=== PATIENT | female | born 1985 | race Caucasian/White ===

== ENCOUNTER → 2017-04-20 09:16 | Outpatient (CLI) | payer MEDICAID, SELFPAY ==
[2017-04-20 09:29] LABS: Basophils % 0.4 % (0.1-2.0); Eosinophils # 0.1 K/mm3 (0.0-0.4); Eosinophils % 1.3 % (0.1-12.0); Hematocrit 38.5 % (37.0-47.0); Hemoglobin 12.1 g/dL (12.2-16.2); Lymphocytes # 2.4 K/mm3 (0.7-4.5); Lymphocytes % 29.4 K/mm3 (10-50); Mean Corpuscular HGB Conc 31.3 g/dL (31.8-35.4); Mean Corpuscular Hemoglobin 26.6 pg (27.0-31.2); Mean Corpuscular Volume 84.8 fl (81-99); Mean Platelet Volume 8.3 fl (7.4-10.4); Monocytes # 0.4 K/mm3 (0.1-1.0); Monocytes % 5.1 % (1.7-9.3); Neutrophils # 5.1 K/mm3 (1.8-7.8); Neutrophils % 63.8 % (37.0-80.0); Platelet Count 274 K/mm3 (142-424); Red Blood Count 4.54 M/mm3 (4.20-5.40); Red Cell Distribution Width 13.2 % (11.5-17.5)
[2017-04-20 10:54] LABS: Alanine Aminotransferase 14 U/L (12-78); Albumin Level 3.7 gm/dL (3.4-5.0); Alkaline Phosphatase 88 U/L (46-116); Anion Gap 15.6 mEq/L (5-15); Aspartate Amino Transferase 5 U/L (15-37); Bilirubin,Total 0.3 mg/dL (0.2-1.0); Blood Urea Nitrogen 14 mg/dL (7-18); Calcium 8.7 mg/dL (8.5-10.1); Carbon Dioxide 23 mmol/L (21.0-32.0); Chloride 108 mmol/L (98-107); Creatinine,Serum 0.88 mg/dL (0.55-1.02); Estimated Glomerular Filt Rate 76 ml/min (>60); GFR (African American) 92 ML/MIN (>60); Globulin 3.8 gm/dl (1.3-3.2); Glucose 148 mg/dL (74-106); Potassium 3.6 mmoL/L (3.5-5.1); Sodium 143 mmol/L (136-145); Thyroid Stimulating Hormone 3.49 uIU/ml (0.358-3.740); Total Protein,Serum 7.5 gm/dL (6.4-8.2)
== END ==
PROVIDERS: PCP Nurse Practitioner Family; Visit Provider Nurse Practitioner Family
DX: G40.909 Epilepsy, unspecified, not intractable, without status epilepticus (principal)
CPT/HCPCS: 36415; 80053; 84443; 85025

== ENCOUNTER → 2017-10-26 08:19 | Outpatient (CLI) | payer MEDICAID, SELFPAY ==
[2017-10-26 08:57] LABS: Hemoglobin A1C 5.7 % (0.0-7.0)
[2017-10-26 09:29] LABS: Alanine Aminotransferase 17 U/L (12-78); Albumin Level 3.6 gm/dL (3.4-5.0); Albumin/Globulin Ratio 0.9 (1.1-1.8); Alkaline Phosphatase 85 U/L (46-116); Anion Gap 15.2 mEq/L (5-15); Aspartate Amino Transferase 9 U/L (15-37); Bilirubin,Total 0.4 mg/dL (0.2-1.0); Blood Urea Nitrogen 15 mg/dL (7-18); Calcium 8.9 mg/dL (8.5-10.1); Carbon Dioxide 26 mmol/L (21.0-32.0); Chloride 106 mmol/L (98-107); Chol/HDL Ratio 2.6 (1-3.5); Cholesterol 156 mg/dL (140-200); Creatinine,Serum 0.94 mg/dL (0.55-1.02); Estimated Glomerular Filt Rate 70 ml/min (>60); GFR (African American) 85 ML/MIN (>60); Globulin 3.9 gm/dl (1.3-3.2); Glucose 82 mg/dL (74-106); HDL Cholesterol 61 mg/dL (29-89); LDL Cholesterol 87 mg/dL (0-130); Potassium 4.2 mmoL/L (3.5-5.1); Sodium 143 mmol/L (136-145); Total Protein,Serum 7.5 gm/dL (6.4-8.2); Triglycerides 40 mg/dL (30-200); VLDL Cholesterol 8 mg/dL (0-40)
== END ==
PROVIDERS: Visit Provider Nurse Practitioner Family
DX: G40.909 Epilepsy, unspecified, not intractable, without status epilepticus (principal); R73.9 Hyperglycemia, unspecified
CPT/HCPCS: 36415; 80053; 80061; 83036

== ENCOUNTER → 2018-11-04 09:12 | Outpatient (CLI) | payer MEDICAID, SELFPAY ==
[2018-11-04 09:39] LABS: Basophils % 0.3 % (0.1-2.0); Eosinophils # 0.2 K/mm3 (0.0-0.4); Eosinophils % 2.2 % (0.1-12.0); Hematocrit 37.9 % (37.0-47.0); Hemoglobin 12.1 g/dL (12.2-16.2); Lymphocytes # 3.9 K/mm3 (0.7-4.5); Lymphocytes % 44.6 % (10-50); Mean Corpuscular Volume 90.8 fl (81-99); Mean Platelet Volume 7.8 fl (7.4-10.4); Monocytes # 0.4 K/mm3 (0.1-1.0); Neutrophils # 4.2 K/mm3 (1.8-7.8); Platelet Count 326 K/mm3 (142-424); Red Blood Count 4.17 M/mm3 (4.20-5.40); Red Cell Distribution Width 13.7 % (11.5-17.5); White Blood Count 8.8 K/mm3 (4.8-10.8)
[2018-11-04 10:55] LABS: Alanine Aminotransferase 19 U/L (12-78); Albumin Level 3.6 gm/dL (3.4-5.0); Alkaline Phosphatase 65 U/L (46-116); Anion Gap 13.1 mEq/L (5-15); Aspartate Amino Transferase 5 U/L (15-37); Bilirubin,Total 0.3 mg/dL (0.2-1.0); Blood Urea Nitrogen 11 mg/dL (7-18); Calcium 9.2 mg/dL (8.5-10.1); Carbon Dioxide 26 mmol/L (21.0-32.0); Chloride 104 mmol/L (98-107); Estimated Glomerular Filt Rate 98 ml/min (>60); GFR (African American) 118 ML/MIN (>60); Globulin 3.6 gm/dl (1.3-3.2); Glucose 113 mg/dL (74-106); Potassium 4.1 mmoL/L (3.5-5.1); Sodium 139 mmol/L (136-145); Total Protein,Serum 7.2 gm/dL (6.4-8.2)
[2018-11-05 20:20] LABS: Folate >20.0 ng/mL (>3.0)
== END ==
PROVIDERS: Visit Provider Nurse Practitioner Family
DX: G40.909 Epilepsy, unspecified, not intractable, without status epilepticus (principal); Z51.81 Encounter for therapeutic drug level monitoring
CPT/HCPCS: 36415; 80053; 80177; 82746; 85025

== ENCOUNTER → 2019-11-12 08:25 | Outpatient (CLI) | payer OTHER, SELFPAY ==
[2019-11-12 08:57] LABS: Basophils % 0.4 % (0.1-2.0); Eosinophils # 0.1 K/mm3 (0.0-0.4); Eosinophils % 1.7 % (0.1-12.0); Hematocrit 39.4 % (37.0-47.0); Lymphocytes % 47.4 % (10-50); Mean Corpuscular Hemoglobin 30.7 pg (27.0-31.2); Mean Corpuscular Volume 93.1 fl (81-99); Mean Platelet Volume 7.5 fl (7.4-10.4); Monocytes # 0.4 K/mm3 (0.1-1.0); Monocytes % 4.2 % (1.7-9.3); Neutrophils # 3.9 K/mm3 (1.8-7.8); Neutrophils % 46.3 % (37.0-80.0); Platelet Count 301 K/mm3 (142-424); Red Blood Count 4.23 M/mm3 (4.20-5.40); Red Cell Distribution Width 12.5 % (11.5-17.5); White Blood Count 8.4 K/mm3 (4.8-10.8)
[2019-11-12 10:04] LABS: Hemoglobin A1C 5.3 % (4.0-6.0)
[2019-11-12 10:15] LABS: Alanine Aminotransferase 16 U/L (12-78); Albumin Level 3.9 g/dl (3.5-5.0); Albumin/Globulin Ratio 1.3 (1.1-1.8); Alkaline Phosphatase 72 U/L (38-126); Aspartate Amino Transferase 19 U/L (14-36); Bilirubin,Total 0.4 mg/dl (0.2-1.3); Blood Urea Nitrogen 12 mg/dl (7-17); Calcium 9.2 mg/dl (8.4-10.2); Carbon Dioxide 27 mmol/L (22.0-30.0); Chloride 102 mmol/L (98-107); Estimated Glomerular Filt Rate 116 ml/min (>60); GFR (African American) 140 ML/MIN (>60); Globulin 3.1 g/dL (1.3-3.2); Glucose 105 mg/dl (74-100); Sodium 137 mmol/L (136-145)
[2019-11-14 09:43] LABS: Levetiracetam (Keppra) 34.2 ug/mL (10.0-40.0)
== END ==
PROVIDERS: Visit Provider Nurse Practitioner Family
DX: G40.909 Epilepsy, unspecified, not intractable, without status epilepticus (principal); R73.9 Hyperglycemia, unspecified; Z51.81 Encounter for therapeutic drug level monitoring; Z86.2 Personal history of diseases of the blood and blood-forming organs and certain disorders involving the immune mechanism
CPT/HCPCS: 36415; 80053; 80177; 83036; 85025

== ENCOUNTER → 2020-12-07 15:17 | Outpatient (CLI) | payer OTHER, SELFPAY ==
[2020-12-07 15:53] LABS: Basophils % 0.5 % (0.1-2.0); Eosinophils # 0.1 K/mm3 (0.0-0.4); Eosinophils % 0.9 % (0.1-12.0); Hemoglobin 13.5 g/dL (12.2-16.2); Lymphocytes # 2.2 K/mm3 (0.7-4.5); Lymphocytes % 29.9 % (10-50); Mean Corpuscular HGB Conc 32.1 g/dL (31.8-35.4); Mean Corpuscular Hemoglobin 29.6 pg (27.0-31.2); Mean Corpuscular Volume 92.2 fl (81-99); Mean Platelet Volume 7.5 fl (7.4-10.4); Monocytes # 0.3 K/mm3 (0.1-1.0); Monocytes % 4.4 % (1.7-9.3); Neutrophils # 4.8 K/mm3 (1.8-7.8); Neutrophils % 64.4 % (37.0-80.0); Platelet Count 385 K/mm3 (142-424); Red Blood Count 4.55 M/mm3 (4.20-5.40); Red Cell Distribution Width 12.1 % (11.5-17.5); White Blood Count 7.4 K/mm3 (4.8-10.8)
[2020-12-07 16:37] LABS: Hemoglobin A1C 5.4 % (4.0-6.0)
[2020-12-07 16:47] LABS: Chloride 105 mmol/L (98-107); Potassium 4.9 mmoL/L (3.5-5.1); Sodium 141 mmol/L (136-145)
[2020-12-07 16:50] LABS: Alanine Aminotransferase 22 U/L (12-78); Alkaline Phosphatase 84 U/L (38-126); Anion Gap 14.9 mEq/L (5-15); Aspartate Amino Transferase 23 U/L (14-36); Blood Urea Nitrogen 12 mg/dl (7-17); Carbon Dioxide 26 mmol/L (22.0-30.0); Estimated Glomerular Filt Rate 115 ml/min (>60); GFR (African American) 139 ML/MIN (>60)
[2020-12-07 16:51] LABS: Albumin Level 4.4 g/dl (3.5-5.0); Albumin/Globulin Ratio 1.3 (1.1-1.8); Calcium 9.5 mg/dl (8.4-10.2); Globulin 3.4 g/dL (1.3-3.2); Glucose 132 mg/dl (74-100); Total Protein,Serum 7.8 g/dl (6.3-8.2)
[2020-12-07 16:52] LABS: Free Thyroxine Index 2.9 ug/dL (5.93-13.13); T4 (Thyroxine) 10.1 ug/dl (5.53-11.0); Triiodothryronine (T3) Uptake 29 % (23.5-40.5)
[2020-12-07 17:05] LABS: Bilirubin,Total 0.1 mg/dl (0.2-1.3); Thyroid Stimulating Hormone 1.34 uIU/mL (0.465-4.68)
== END ==
PROVIDERS: Visit Provider Nurse Practitioner Family
DX: R00.0 Tachycardia, unspecified (principal); R73.9 Hyperglycemia, unspecified; G40.909 Epilepsy, unspecified, not intractable, without status epilepticus; Z51.81 Encounter for therapeutic drug level monitoring
CPT/HCPCS: 36415; 80053; 80177; 83036; 84436; 84443; 84479; 85025

== ENCOUNTER 2024-12-21 10:41 | Outpatient (CLI) | payer OTHER, SELFPAY ==
--- OUTSIDE RECORDS SUMMARY | 2024-10-29 12:45 | XMS_ITS ---
Author Organization [facility] Address [address] [facility] [address] [facility] [address], [place] [address] Care Team Providers Care Leather Lacer Name Role Phone Anika Costello Primary Care Provider Allergies No Known Allergies REASON FOR VISIT medication check Medications Medication SIG (Take, Route, Frequency, Duration) Notes Start Date End Date Status Keppra 1000 MG 1 tab(s) orally 2 ti mes a day; Duration: 30 days Active Metoprolol Succinate ER 25 MG 1 tablet Orally Once a day; Duration: 30 days 10/29/2024 Active Multivitamin - 1 tablet Orally Once a day Active Problems Problem Type SNOMED Code ICD Code Onset Dates Problem Status W/U Status Risk Notes Problem Essential hypertension (98284457) Essential hypertension (I10) Active confirmed Vital Signs Temperature 97.9 degrees Fahrenheit 10/30/19 25 Heart Rate 150 /min 10/29/2024 Blood pressure systolic 142 mm Hg 10/30/19 25 Blood pressure diastolic 100 mm Hg 025 Height 69.5 in 10/29/2024 Weight 214 lbs 10/29/2024 BMI 31.15 kg/m2 10/29/2024 HR 100 Encounters Encounter Location Date Provider Diagnosis [facility] [address] [facility] [address] [place], [place] [address] 10/29/2024 Anika Costello Essential hypertensi on I10 ; Tachycardia R00.0 ; Seizure disorder G40.909 ; BMI 31.0-31.9,adult Z68.31 ; INTERNAL CONTROL MANAGER (ventriculoperitoneal) shunt status Z98.2 and Prediabetes R73.03 Assessments Encounter Date Diagnosis (ICD Code) Assessment Notes Treatment Notes Treatment Clinical Notes Section Notes 10/29/2024 Essential hypertension (ICD-10 - I10) BP again mildly elevated, as is her HR. Both come down with time in the office and she admits significant anxiety about coming in to the office EKG, Holter and Echo done in 2015 for tachycardia were normal Rec low dose metoprolol, encouraged to monitor BP/HR at home 2-3 times per week, and FU again in 3-4 weeks to re-evaluate and obtain labs Sooner return precautions reviewed 10/29/2024 Tachycardia (ICD-10 - R00.0) 10/29/2024 Seizure disorder (ICD-10 - G40.909) continue Keppra 10/29/2024 BMI 31.0-31.9,adult (ICD-10 - Z68.31) 10/29/2024 INTERNAL CONTROL MANAGER (ventriculoperito conrado) shunt status (ICD-10 - Z98.2) no evidence of complication at this time 10/29/2024 Prediabetes (ICD-10 - R73.03) continue dietary efforts Plan Of Treatment Medication Medication Name Sig Start Date Stop Date Notes Keppra 1000 MG 1 tab(s) orally 2 ti mes a day; Duration: 30 days Metoprolol Succinate ER 25 MG 1 tablet O rally Once a day; Duration: 30 days 10/29/2024 Next Appt Details Follow Up: 3-4 weeks, Reason : AWV Progress Notes * rGecia GARDNER AnnDOB:[birth year] (39 yo F)Acc No.[id number]:10/29/2024 Progress Notes Patient: Grecia SESAY Clotilde Provider: TROY Mera :1985 A ge:39 Y S ex:Female Date:10/29/2024 Address:[address] [facility] [address] , [id number] Subjective: * Chief Complaints: * 1 . Medication check. * HPI: g en: 39 yr old female seen today for routine FU. She continues to work on diet/exercise due to prediabetes and strong FH of DM. Weight has trended down slightly over the past year. Riding exercise bike occasionally and tolerates well. No seizure activity. Taking Keppra regularly and folic acid supplement. Menstrual cycles are regular, mild-mod dysmenorrhea on the first day of cycle but improves afterward. She does note some mild constipation with BM only every 2-3 days but denies associated abd pain or difficulty passing stools. Does a good job drinking water throughout the day but doesn't get much fiber in diet. Continues to live with her parents. Spends time watching TV, few hobbies. Doesn't socialize outside of her family. Has been helping babysit her niece and nephew some over the summer. * ROS: R ESPIRATORY: no S hortness of breath. n o C hest pain. n o?Cough. C ARDIOLOGY: no D izziness. n o C hest pain. n o P alpitations. C ONSTITUTIONAL: no F ever. n o F atigue. G ASTROENTEROLOGY: See HPI Y es. n o N ausea. n o V omiting.?no D iarrhea. C onstipation y es. H EMATOLOGY/LYMPH: no F atigue. M USCULOSKELETAL: no b ack pain. n o J oint stiffness. n o J oint pain. n o J oint swelling. U ROLOGY: no B lood in urine. n o F requent urination. ? * Medical History: P osterior fossa encephalocele, s/p INTERNAL CONTROL MANAGER shunting x 2 during grade tamper. 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 Neurology has recommended long-term treatment. * Surgical History: F luid back of head 1987, Fluid back of head x 3 2012. * Hospitalization/Major Diagno stic Procedure: a ll of the above . * Family History: F ather: alive, diagnosed with Hypertension. M other: alive, Hyperlipidemia, diagnosed with Diabetes, Hypertension. P aternal Grand Father: , prostate cancer, diagnosed with Cancer. P aternal Grand Mother: alive, Hyperlipidemia, diagnosed with Hypertension, Heart Disease, Stroke. M aternal Grand Father: unknown. M aternal Grand Mother: , Gout, Thyroid issues, diagnosed with Diabetes, Hypertension. P aternal uncle: alive. P aternal aunt: alive.?Maternal uncle: alive. M aternal aunt: alive. S iblings: alive. 1 brother(s) - healthy. . * Social History: S moking A re you a:: nonsmoker. R ecreational drug use: no. Exercise: yes. Home smoke detector use: yes. Caffeine: yes, soda a couple times weekly. Living Will: No. Alcohol: no. Sexually active: no. Travel outside US: no. Occupation: unemployed. Lives at home with parents. Completed only Sophomore year of high school because I just couldn't understand anything . * Medications: T aking Multivitamin - Tablet 1 tablet Orally Once a day , Taking Keppra 1000 MG Tablet 1 tab(s) orally 2 times a day , Discontinued Folic Acid OTC 1 TAB QD , Notes to Pharmacist: 800 mcg once a day *Please review and pick correct strength- formulation from Medispan options. If intended option is not shown, discontinue and re-order from Quick Search*, Medication List reviewed and reconciled with the patient * Allergies: N .K.D.A. Objective: * Vitals: N urse: be, Pain: 0, Temp: 97.9, RR: 16, HR: 150, BP: 142/100, Ht: 69.5, Wt: 214, BMI:31.15, Repeat BP: 148/90. HR 100. * Examination: G eneral Examination: General P leasant and Cooperative, NAD on RA,. Heart: R RR, No m/r/g/h, Nl S1S2, No JVD, 2(+) symmetric pulses, No edema. HEENT: V P shuntTravels along the right side of her neck .? Lungs: L CTAB, No wheezes, crackles or rhonchi, Good air movement,. Abdomen: S oft, NTND, BSNA, No organomegaly or peritoneal signs.. Neurologic Exam: Alert and oriented x 3. Skin: w ithout acute rashes. Peripheral pulses: n ormal (2+) bilaterally. neck supple,, no thyromegaly,, no lymphadenopathy,. Psych p leasant to mildly anxious. Assessment: * Assessment: 1. E ssential hypertension - I10 (Primary) 2 . T achycardia - R00.0 ? 3 . S eizure disorder - G40.909 4 . B NV 31.0-31.9,adult - Z68.31? 5. V P (ventriculoperitoneal) shunt status - Z98.2 6 . P rediabetes - R73.03 Plan: * Treatment: 2. S eizure disorder Refill Keppra Tablet, 1000 MG, 1 tab(s), orally, 2 times a day, 30 days, 60 Tablet, Refills 11.? Clinical Notes: continue Keppra 3. V P (ventriculoperitoneal) shunt status Clinical Notes: no evidence of complication at this time 4. P rediabetes Clinical Notes: continue dietary efforts * Follow Up: 3 -4 weeks (Reason: AWV) * * Sign off status: Completed true * Provider: TROY Mera Date: 0 10/29/2024 Generated for Mihaela fry/Cheikh/Carlene on: 1 10:50 AM EDT History and Physical Notes * Examination Category Sub-Category Detail Notes Category Not es General Examination HEENT: INTERNAL CONTROL MANAGER shunt Travels along the right side of her neck Heart: RRR, No m/r/g/h, Nl S1S2, No JVD, 2(+) symmetric pulses, No edema Lungs: LCTAB, No wheezes, c rackles or rhonchi, Good air movement, Abdomen: Soft, NTND, BSNA, No organomegaly or peritoneal signs. Skin: without acute rashes Neurologic Exam: Alert and oriented x 3 Peripheral pulses: normal (2+) bilatera lly neck supple,, no thyromeg liam,, no lymphadenopathy, General Pleasant and Coopera tive, NAD on RA, Psych pleasant to mildly a nxious
--- NOTE | 2024-12-21 | CA_ITS ---
APPROVED REPORT EXAM: Comprehensive 2D, Doppler, and color-flow Echocardiogram Manager Of International: Mili Yeboah CRT Ht: 5 ft 9 in Wt: 214lbs BSA: 2.13 BP: 140/85 mmHg Indications: Tachycardia, HTN 2D Dimensions LA Volume 20.50 mL LA Volume Index 9.40 mL/m2 (M/F) 16-34 M-Mode Dimensions RVDd 2.14 cm (0.9-2.6) LA Diam 3.14 cm (1.9-4.0) LVDd 4.14 cm (3.5-5.7) LVDs 2.95 cm (3.5-5.7) IVSd 1.16 cm (0.6-1.1) PWd 0.81 cm (0.6-1.1) EF (Teich) 55.70% FS 28.70% EDV (Teich) 75.90 mL TAPSE 1.94 (<1.7) ESV (Teich) 33.60 mL LV Diastology E Decel Time 127 (160-240 msec) E/A Ratio 6.97 MED A' 12.50 cm/s LAT A' 11.40 cm/s Aortic Valve AO Peak GR. 5.90 mmHg Mitral Valve MV E Max Jose. 105.0 (40-130 cm/s) MV A Velocity 15.0 (40-130 cm/s) E/A Ratio 6.97 MV PHT 37.0 ms Pulmonary Valve PV Peak Velocity 141.0 (50-150 cm/s) Tricuspid Valve TR P. Velocity 193.00 cm/s RAP Estimate 10.00 mmHg RVSP 25.00 mmHg Left Ventricle The left ventricle is normal size. Left ventricular systolic function is normal. The left ventricular ejection fraction is within the normal range. There is normal left ventricular wall thickness. There is normal LV segmental wall motion. The left ventricular diastolic function is normal. LVEF is 55% Right Ventricle The right ventricle is normal size. The right ventricular systolic function is normal. Atria The left atrium size is normal. The right atrium size is normal. There is no color Doppler evidence of interatrial shunt. Aortic Valve The aortic valve opens well. There is no hemodynamically significant aortic valvular stenosis. No aortic regurgitation is present. Mitral Valve The mitral valve is normal in structure. No evidence of mitral valve stenosis. Trace mitral regurgitation is present. Tricuspid Valve The tricuspid valve leaflets are thin and pliable. Trace tricuspid regurgitation. There is insufficient TR jet to estimate RVSP. Pulmonic Valve The pulmonary valve is grossly normal in structure. Trace pulmonic valve regurgitation is present. Great Vessels The aortic root is normal in size. IVC is normal in size and collapses >50% with inspiration. Pericardium There is no pericardial effusion. Other Information Study Quality: Adequate Conclusion Normal biventricular systolic function. No significant valvular stenosis or regurgitation. Electronically signed by : Sherry Ellison MD 12/22/2024 13:21:47
--- OUTSIDE RECORDS SUMMARY | 2024-12-21 10:54 | XMS_ITS | Patient Health Record ---
Author Organization [facility] Address [address] [place], [place] [address] Care Team Providers Care Shear Operator Helper Name Role Phone Anika Costello Primary Care Provider Migration, Provider Unavailable Unavailable Allergies No Known Allergies Results Component Value Reference Range Notes TSH W/REFLEX TO FT4 (20710) Reviewed date:12/01/2024 05:14:54 PM Interpretation: Performing Lab:[facility] [employer] [id number], powervaultTqquXU[address] [place] Notes/Report: NON-FASTING; NON-FASTING; NON-FASTING; NON-FASTING; NON-FAST TSH W/REFLEX TO FT4 1.48 Reference Range > or = 20 Years 0.40-4.50 Ranges First trimester 0.26-2.66 Second trimester 0.55-2.73 Third trimester 0.43-2.91 FOLATE, SERUM (466) Reviewed date:12/01/2024 05:15:13 PM Interpretation: Performing Lab:[facility] [employer] [id number], BannoCegrJW[address] [place] Notes/Report: NON-FASTING; NON-FASTING; NON-FASTING; NON-FASTING; NON-FAST FOLATE, SERUM >24.0 Reference Range Low: <3.4 Borderline: 3.4-5.4 Normal: >5.4 HEMOGLOBIN A1c (496) Reviewed date:12/01/2024 05:14:49 PM Interpretation: Performing Lab:CB, [employer] [id number], [facility] CenterZdbuQX[address] [place] Notes/Report: NON-FASTING; NON-FASTING; NON-FASTING; NON-FASTING; NON-FAST HEMOGLOBIN A1c 5.6 <5.7 % For the purpose of screening for the presence of diabetes: <5.7% Consistent with the absence of diabetes 5.7-6.4% Consistent with increased risk for diabetes (prediabetes) > or =6.5% Consistent with diabetes This assay result is consistent with a decreased risk of diabetes. Currently, no consensus exists regarding use of hemoglobin A1c for diagnosis of diabetes in children. According to [place] Diabetes Association (ADA) guidelines, hemoglobin A1c <7.0% represents optimal control in non- diabetic patients. Different metrics may apply to specific patient populations. Standards of Medical Care in Diabetes(ADA). CBC (INCLUDES DIFF/PLT) (639 9) Reviewed date:12/01/2024 05:14:59 PM Interpretation: Performing Lab:[facility] [employer] [id number] [place], [facility] CenterMszpHW[address] [place] Notes/Report: NON-FASTING; NON-FASTING; NON-FASTING; NON-FASTING; NON-FAST WHITE BLOOD CELL COUNT 14.0 3.8-10.8 Thousand/ uL RED BLOOD CELL COUNT 4.58 3.80-5.10 Million/uL HEMOGLOBIN 13.5 11.7-15.5 g/dL HEMATOCRIT 41.9 35.0-45.0 % MCV 91.5 80.0-100.0 fL MCH 29.5 27.0-33.0 pg MCHC 32.2 32.0-36.0 g/dL For adults, a slight decrease in the calculated MCHC value (in the range of 30 to 32 g/dL) is most likely not clinically significant; however, it should be interpreted with caution in correlation with other red cell parameters and the patient's clinical condition. RDW 13.7 11.0-15.0 % PLATELET COUNT 382 140-400 Thousand/uL MPV 10.1 7.5-12.5 fL ABSOLUTE NEUTROPHILS 9870 9495-5639 cells/uL ABSOLUTE LYMPHOCYTES 3178 850-3900 cells/uL ABSOLUTE MONOCYTES 840 200-950 cells/uL ABSOLUTE EOSINOPHILS 70 15-500 cells/uL ABSOLUTE BASOPHILS 42 0-200 cells/uL NEUTROPHILS 70.5 LYMPHOCYTES 22.7 MONOCYTES 6.0 EOSINOPHILS 0.5 BASOPHILS 0.3 MAGNESIUM (622) Reviewed date:12/01/2024 05:14:43 PM Interpretation: Performing Lab:[facility], [employer] [id number] [facility], [facility] CenterGorsRO[address] [place] Notes/Report: NON-FASTING; NON-FASTING; NON-FASTING; NON-FASTING; NON-FAST MAGNESIUM 1.9 1.5-2.5 mg/dL COMPREHENSIVE METABOLIC PANE L (69049) Reviewed date:12/01/2024 05:15:07 PM Interpretation: Performing Lab:[facility], [employer] [id number] [facility], [facility] CenterOmifYJ[address] [place] Notes/Report: NON-FASTING; NON-FASTING; NON-FASTING; NON-FASTING; NON-FAST GLUCOSE 117 65-99 mg/dL Fasting reference interval For someone without known diabetes, a glucose value between 100 and 125 mg/dL is consistent with prediabetes and should be confirmed with a follow-up test. UREA NITROGEN (BUN) 14 7-25 mg/dL CREATININE 0.77 0.50-0.97 mg/dL EGFR 102 > OR = 60 mL/min/1.73m2 BUN/CREATININE RATIO SEE NOTE: 6-22 (calc) Not Reported: BUN and Creatinine are within reference range. SODIUM 139 135-146 mmol/L POTASSIUM 3.5 3.5-5.3 mmol/L CHLORIDE 106 98-110 mmol/L CARBON DIOXIDE 21 20-32 mmol/L CALCIUM 9.3 8.6-10.2 mg/dL PROTEIN, TOTAL 7.6 6.1-8.1 g/dL ALBUMIN 4.0 3.6-5.1 g/dL GLOBULIN 3.6 1.9-3.7 g/dL (calc) ALBUMIN/GLOBULIN RATIO 1.1 1.0-2.5 (calc) BILIRUBIN, TOTAL 0.4 0.2-1.2 mg/dL ALKALINE PHOSPHATASE 67 31-125 U/L AST 12 10-30 U/L ALT 10 6-29 U/L Reason For Referral No Information Medications Medication SIG (Take, Route, Frequency, Duration) Notes Start Date End Date Status Keppra 1000 MG 1 tab(s) orally 2 ti mes a day; Duration: 30 days Active Multivitamin - 1 tablet Orally Once a day Active Metoprolol Succinate ER 25 MG 1 tablet Orally Once a day; Duration: 30 days Active Problems Problem Type SNOMED Code ICD Code Onset Dates Problem Status W/U Status Risk Notes Problem Seizure disorder (459223092) Seizure disorder (G40.909) Active confirmed Problem Hyperglycemia (83169638) Hyperglycemia (R73.9) Active confirmed Problem Essential hypertension (32754945) Essential hypertension (I10) Active confirmed Problem Body mass index 30.00 to 34.99 (573620007024933) BMI 31.0-31.9,adult (Z68.31) Active confirmed Problem Tachycardia (9765846) Tachycardia (R00.0) Active confirmed Problem Body mass index 25-29 - overweight (917990929) BMI 28.0-28.9,adult (Z68.28) Active confirmed Problem History of anemia (303815130) History of anemia (Z86.2) Active confirmed Problem Ventricular shunt in situ (992606732) DATA SECURITY ADMINISTRATOR (ventriculoperito conrado) shunt status (Z98.2) Active confirmed Problem History of hydrocephalus (Z86.69) Active confirmed Problem Elevated blood-pressure reading without diagnosis of hypertension (783747049) Elevated blood pressure reading (R03.0) Active confirmed Problem History of endocrine disorder (020367013) History of folic acid deficiency (non-anemic) (Z86.39) Active confirmed Vital Signs Heart Rate 132 /min 11/26/2024 repeat HR 100 a t end of exam, BP 138/90 Temperature 97.7 degrees Fahrenheit 11/26/2024 repe at HR 100 at end of exam, BP 138/90 Blood pressure diastolic 90 mm Hg 11/26/2024 rep eat HR 100 at end of exam, BP 138/90 Height 69.5 in 11/26/2024 repeat HR 100 a t end of exam, BP 138/90 Blood pressure systolic 142 mm Hg 11/26/2024 repe at HR 100 at end of exam, BP 138/90 Weight 210 lbs 11/26/2024 repeat HR 100 a t end of exam, BP 138/90 BMI 30.56 kg/m2 11/26/2024 repeat HR 100 a t end of exam, BP 138/90 Encounters Encounter Location Date Provider Diagnosis [facility] [address] [facility] [address] [place] [address] 06/13/2024 Provider Migration Seizure disorder G40.909 [facility] [address] [facility] [address] [place] [address] 10/29/2024 Anika Costlelo Essential hypertension I10 ; Tachycardia R00.0 ; Seizure disorder G40.909 ; BMI 31.0-31.9,adult Z68.31 ; DATA SECURITY ADMINISTRATOR (ventriculoperitoneal ) shunt status Z98.2 and Prediabetes R73.03 [facility] [address] [facility] [address] [place] [address] 11/26/2024 Anika Costello Essential hypertension I10 ; Tachycardia R00.0 ; Seizure disorder G40.909 ; DATA SECURITY ADMINISTRATOR (ventriculoperitoneal ) shunt status Z98.2 ; Prediabetes R73.03 and Folate deficiency E53.8 [facility] [address] [address] 10/17/2024 Anika Costello [facility] [address] [facility] [address] [place], [place] [address] 10/30/2024 Anika Costello [facility] [address] [facility] [address] [place], [place] [address] 12/01/2024 Anika Costello Tachycardia R00.0 Assessments Encounter Date Diagnosis (ICD Code) Assessment Notes Treatment Notes Treatment Clinical Notes Section Notes 06/13/2024 Seizure disorder (ICD-10 - G40.909) 10/29/2024 Essential hypertension (ICD-10 - I10) BP [...] precautions reviewed 10/29/2024 Tachycardia (ICD-10 - R00.0) 11/26/2024 Essential hypertension (ICD-10 - I10) Rec continue metoprolol and encouraged to monitor HR and BP at home. she still admits significant anxiety about coming in to the office EKG, Holter and Echo done in 2015 for tachycardia were normal Labs today. Consider echo 11/26/2024 Tachycardia (ICD-10 - R00.0) 12/01/2024 Tachycardia (ICD-10 - R00.0) 11/26/2024 Seizure disorder (ICD-10 - G40.909) continue Keppra 10/29/2024 Seizure disorder (ICD-10 - G40.909) continue Keppra 11/26/2024 DATA SECURITY ADMINISTRATOR (ventriculoperito conrado) shunt status (ICD-10 - Z98.2) no evidence of complication at this time 10/29/2024 BMI 31.0-31.9,adult (ICD-10 - Z68.31) 10/29/2024 DATA SECURITY ADMINISTRATOR (ventriculoperito conrado) shunt status (ICD-10 - Z98.2) no evidence of complication at this time 11/26/2024 Prediabetes (ICD-10 - R73.03) continue dietary efforts 10/29/2024 Prediabetes (ICD-10 - R73.03) continue dietary efforts 11/26/2024 Folate deficiency (ICD-10 - E53.8) Plan Of Treatment Pending Test Test Name Order Date Echocardiogram 12/01/2024 Echocardiogram 01/25/2016 H-CBC with AUTO DIFF 12/27/2015 H-CBC with AUTO DIFF 06/16/2015 H-BMP 04/26/2016 H-CMP 01/25/2016 H-CMP 12/27/2015 H-CMP 06/16/2015 H-PHOSPHOROUS 12/27/2015 H-MAGNESIUM 12/27/2015 H-LIPID PANEL 06/16/2015 H-TSH 06/16/2015 H-TSH 12/27/2015 H-keppra 12/27/2015 M-Comprehensive Metabolic Panel 10/18/19 M-Hemoglobin A1C 10/17/2017 M-Lipid Panel 10/17/2017 LEVETIRACETAM 11/26/2024 Insurance Providers Payer Name Payer Address Payer Phone Subscriber Number Group Number Insured Name Patient Relationship to Insured Coverage Start Date Coverage End Date [employer] [facility] [address] [address] [place] [address] [phone] [id number] Grecia Obrien Self - patient is the insured Medical (General) History Medical History History ICD Code Posterior fossa encephalocel e, s/p DATA SECURITY ADMINISTRATOR 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 Seizures, onset during infan cy and recurred in 2009. Neurology has recommended long-term treatment Surgical History Surgery Date(Month/Year) Fluid back of head 1988 Fluid back of head x 3 2012 Hospitalization History Reason Date(Month/Year) all of the above
--- OUTSIDE RECORDS SUMMARY | 2024-12-21 10:54 | XMS_ITS | Clinical Summary ---
Author Organization Healthcare Address [address] [id number] Care Team Providers Care Street Commissioner Name Role Phone Alfred Magallanes MD Primary Care Provider [phone] Immunizations Immunization Administration Dates Next Due Influenza, Unspecified 03/09/2011 Family History Medical History Relation Name Comments Arthritis Father Hypertension Father Conversions - Other Mother Ulcer Diabetes Mother Hyperlipidemia Mother Hypertension Mother Relation Name Status Comments Father Mother Social History Tobacco Use Types Packs/Day Years Used Date Smoking Tobacco: Never Comments Unknown Sex and Gender Information Value Date Recorded Sex Assigned at Not on file Legal Sex Female 7:31 PM EDT Gender Identity Not on file Sexual Orientation Not on file Last Filed Vital Signs Vital Sign Reading Time Taken Comments Blood Pressure - - Pulse - - Temperature - - Respiratory Rate - - Oxygen Saturation - - Inhaled Oxygen Concentration - - Weight 86.2 kg (189 lb 15.9 oz) 06/08/2014 2:08 PM EDT Height 175.3 cm (5' 9 ) 06/08/2014 2:08 PM EDT Body Mass Index 28.06 06/08/2014 2:08 PM EDT Plan of Treatment Health Maintenance Due Date Last Done Comments [facility]-Depression Screening 1987 [facility]-Infant/Child/Adol SDOH Screenings 1985 [facility]-Varicella Vaccines (1 of 2 - 13+ 2-dose series) 07/23/2000 [facility]- SDOH Screenings 07/23/2005 [facility]-Adult SDOH Screenings 07/23/2005 [facility]-DTaP,Tdap,and Td Vaccine s (1 - Tdap) 07/23/2006 [facility]-Hepatitis B Vaccines (1 of 3 - 19+ 3-dose series) 07/23/2006 [facility]-Pap Smear 07/23/2008 HPV Vaccines (1 - 3-dose SCD M series) 07/23/2014 [facility]-Cervical Cancer Screening 07/23/2017 [facility]-HPV/Cotest 07/23/2017 [id number] Vaccine (1 - 20 24-25 season) 2024 [facility]-Influenza Vaccine (#1) 2024 03/09/2011 [facility]-Zoster Vaccines (1 of 2) 07/23/2037 [facility]-HIB Vaccines Aged Out No longer e ligible based on patient's age to complete this topic [facility]-Hepatitis A Vaccines Aged Out No longer eligible based on patient's age to complete this topic [facility]-IPV Vaccines Aged Out No longer e ligible based on patient's age to complete this topic [facility]-Pneumococcal Vaccine: Pediatrics (0 to 5 Years) and At-Risk Patients (6 to 49 Years) Aged Out No long er eligible based on patient's age to complete this topic [facility]-Rotavirus Vaccines Aged Out No lo nger eligible based on patient's age to complete this topic Care Teams Street Commissioner Relationship Specialty Start Date End Date Alfred Magallanes MD [address] [place] [address] [place] [address] PCP - General 07/22/20
== END 2024-12-21 23:59 | disposition home or self-care (01) ==
LOC: RT 10:42
PROVIDERS: PCP Nurse Practitioner Family; Visit Provider Nurse Practitioner Family
DX: R00.0 Tachycardia, unspecified (principal); I10 Essential (primary) hypertension
CPT/HCPCS: 93306